=== PATIENT | female | born 1960 | race Caucasian/White ===

== ENCOUNTER 2018-03-04 02:46 | Inpatient (IN) | payer OTHER ==
[~2018-03-04] VITALS: Ht 165.1 cm; Wt 101.6 kg
[~2018-03-04 02:46] MED LIST: ALLER-TEC10 MG PO; ESCITALOPRAM OX10 MG PO; PANTOPRAZOLE SO40 M1 PO; VASOTEC10 MG PO
--- NOTE | 2018-03-04 08:03 | Admission Core Measures ---
Acute Coronary Syndrome (CM) ACS Core Measures Acute Coronary Syndrome Diagnosis No Congestive Heart Failure (NEW) CHF Core Measures Congestive Heart Failure Diagnosis No Cerebrovascular Accident CVA Core Measures CVA/TIA Diagnosis No Venous Thromboembolism VTE Core Maribeth (View Protocol) VTE Risk Factors Surgery No Mechanical VTE Prophylaxis d/t N/A MechProphylax Ordered No VTE Pharm Prophylaxis d/t NA PharmProphylax ordered Problem List As ranked by this Provider includes Assessment & Plan 1. Morbid obesity 2. Hypertension 3. Sleep apnea 4. GERD (gastroesophageal reflux disease) 5. S/P laparoscopic sleeve gastrectomy HOME MEDS Home Med List Cetirizine HCl (Aller-Shivani) 10 MG TABLET 1 TAB PO QPM ALLERGIES (Reported) Enalapril Maleate (Vasotec) 10 MG TABLET 1 TAB PO QPM BP (Reported) Escitalopram Oxalate 10 MG TABLET 1 TAB PO QPM DEPRESSION (Reported) Pantoprazole Sodium 40 MG TABLET.DR 1 TAB PO QPM REFLUX (Reported)
--- NOTE | 2018-03-04 08:04 | Surg Short-stay <48hrs Dis Sum ---
Visit Information Visit Dates Admission Date: 03/04/18 Discharge Date: 03/05/18 Surgical Short Stay DC Summary Admission Diagnosis: Morbid Obesity BMI 38, JAIDEN, HTN Final Diagnosis: RODRICK s/p Laparoscopic Sleeve Gastrectomy Procedure(s): Laparoscopic Sleeve Gastrectomy Summary/Significant Findings: Electively scheduled laparoscopic sleeve gastrectomy on 03/04/[address] Carr, for history of morbid obesity BMI 38, JAIDEN, HTN. Started on stage 1 bariatric diet post-operiately. Pain control transitioned from iv to oral medication as able. Discharged to home when tolerating bariatric diet and pain controlled. No indication for outpatient Lovenox management. Condition at Discharge: stable Discharge Disposition: home or self care Discharge instructions provided to patient/family: Yes Post discharge follow-up plan: one week follow up with Copies to: Reza SANTIAGO,Janice
--- NOTE | 2018-03-04 08:07 | Patient Discharge Instructions ---
Discharge Instructions General Discharge Information You were seen/treated for: morbid obesity, history of hypertension, sleep apnea You had these procedures: laparoscopic sleeve gastrectomy (03/04/18) Watch for these problems: fever>101.3, increased pain, redness/swelling/drainage, shortness of breath, chest pains, dizziness No bath, but you may shower: Yes Other wound care: ok to remove outer dressings. leave white steri strips in place. keep incisions clean & dry. Diet Continue normal diet: No Recommended Diet: Bariatric Additional DIET Information: weekly bariatric stage diet advancement as tolerated, as directed Activity Full Activity/No Limits: No Activity Self Limited: Yes Pounds, do NOT lift more than: 10 Other activity limits: no heavy lifting. no strenuous activity. Acute Coronary Syndrome Inclusion Criteria At DC or during hospital stay patient has or had the following: ACS DIAGNOSIS No Discharge Core Measures Meds if any: Prescribed or Continued at Discharge Meds if any: NOT Prescribed or Continued at Discharge Congestive Heart Failure Inclusion Criteria At DC or during hospital stay patient has or had the following: CHF DIAGNOSIS No Discharge Core Measures Meds if any: Prescribed or Continued at Discharge Meds if any: NOT Prescribed or Continued at Discharge Cerebrovascular accident Inclusion Criteria At DC or during hospital stay patient has or had the following: CVA/TIA Diagnosis No Discharge Core Measures Meds if any: Prescribed or Continued at Discharge Meds if any: NOT Prescribed or Continued at Discharge Venous thromboembolism Inclusion Criteria VTE Diagnosis No VTE Type NONE VTE Confirmed by (Test) NONE Discharge Core Measures - Per Current guidelines, there needs to be overlap - treatment for the first 5 days of Warfarin therapy. - If discharged on Warfarin prior to 5 days of - overlap therapy, the patient will need to be - assessed for post discharge needs including - *Post discharge parental anticoagulation - *Warfarin and/or parental anticoagulation education - *Follow up date to check INR post discharge At least 5 days overlap therapy as Inpatient No Meds if any: Prescribed or Continued at Discharge Note: Overlap Therapy is Warfarin and Anticoagulant Meds if any: NOT Prescribed or Continued at Discharge
[2018-03-04] MEDS ORDERED: TYLENOL WITH C1 EACH PO (08:08)
--- NOTE | 2018-03-04 11:20 | Operative Report ---
Operative/Inv Procedure Report Surgery Date: 03/04/18 Name of Procedure: Laparoscopic Sleeve Gastrectomy Pre-Operative Diagnosis: Morbid Obesity BMI 38, JAIDEN, HTN Post-Operative Diagnosis: Same Estimated Blood Loss: less than 50ml Surgeon/Clip Riveter: Perez Carr DO Anesthesia: general endotracheal tube IV Fluids: 1000 cc Drains: None Specimens: Stomach Complications: None Condition: Stable Operative Indication: This is a 57-year-old female who presented to the office for workup for bariatric surgery. After appropriate workup was completed I discussed with the patient the band, the sleeve, and the gastric bypass. The patient chose to undergo a sleeve gastrectomy. All risks including but not limited to bleeding, infection, leak, stricture, injury to surrounding bowel/esophagus/stomach/liver/ spleen, long-term reflux, DVT/PE, and mortality of 06/999 patients were discussed in detail. The patient understood everything and decided to proceed. Operative/Procedure Note Note: The patient was brought to the operating room and placed on the operating room table in supine position. Venodyne stockings were placed and adequate general endotracheal anesthesia was obtained. The patient was prepped and draped in standard surgical fashion. Began the procedure by making a 2 cm transverse incision supraumbilically and slightly to the left of the midline. Then using a 12 mm clear Visiport and a 10 mm 0 laparoscope, the abdominal cavity was accessed. Great care was taken to go through the anterior rectus sheath, the posterior rectus sheath, and through the peritoneum. Once we entered the peritoneum the abdominal cavity was insufflated to 15 mmHg. Upon initial examination no obvious gross pathology was seen. Accessory trocars were placed, 5 mm in the epigastrium for the Aldair liver retractor. The retractor was inserted and the liver was retracted anteriorly exposing the hiatus, no hiatal hernia was seen. 5 mm ports were placed in the right and left upper quadrant, a 5 mm left lateral port, and a 15 mm right lateral port. Began the procedure by mobilizing the greater curvature of the stomach approximately 7 cm from the pylorus. Once the retrogastric space was reached the whole greater curvature was mobilized maintaining hemostasis using Harmonic scalpel. Full hiatal dissection was performed, no hiatal hernia was seen. Posterior adhesions were taken down using Harmonic scalpel as well. Once the stomach was adequately mobilized a 38 Swazi bougie was inserted and placed along the lesser curvature of the stomach. Once the bougie was in the appropriate position we began creating our sleeve, two 60 mm black staple loads with seamguard followed by two 60 mm purple staple loads with seamguard and finished with a 45 mm purple load with seamguard as well. Great care was taken to leave ample room at the incisura angularis, to prevent any twisting or kinking of the sleeve, to stay lateral to the esophagogastric fat pad, and to do a full fundal excision. At the completion of the staple line the staple line was examined, it appeared intact and no obvious bleeding was noted. The bougie was removed, the sleeve was lying nicely without any twisting or kinking. The resected stomach was removed through the right lateral port site. The port and the left upper quadrant were irrigated until clear. All ports were removed under direct visualization no obvious bleeding was noted. The 15 mm port site fascia was closed using 0 Vicryl suture. The skin was closed using 4-0 Monocryl. Steri- Strips and dressings were placed. The patient was successfully extubated and transferred to the recovery room in stable condition. The patient tolerated the procedure well with no complications. Findings: No hiatal hernia, 38 Fr bougie CC: Reza SANTIAGO,Janice
--- NOTE | 2018-03-04 13:18 | PN- Bariatrics ---
Subjective Subjective: Patient reports heartburn, despite recieving 20 mg pepcid in pacu. She reports mild shoulder pain from CO2. She is tolerating water w/o nausea or vomiting. Denies voiding. Offers no other complaints. Objective Vital Signs and I&Os afebrile, VSS Physical Exam: Gen - resting comfortably in nad Cardiac - S1S2 noted Lungs - CTAB, no w/r/r Abd -soft, obese, dressing c/d/i, bs +, appropriately tender, no rebound or guarding noted Ext - no edema or calf pain, alps in place Current Medications: Current Medications Sig/Roney Start time Last Medication Dose Route Stop Time Status Admin Acetaminophen 1,000 MG Q6H 03/04 1330 UNVr N/A 1 UNIT IV 03/05 0744 Acetaminophen 0 .STK-MED ONE 03/04 0711 DC IV Acetaminophen/ 5 ML Q4-6 PRN PRN 03/05 1200 UNVr Codeine Phosphate PO Acetaminophen/ 10 ML Q4-6 PRN PRN 03/05 1200 UNVr Codeine Phosphate PO Cefazolin Sodium 2 GM IQ8 03/04 1800 UNir IV 03/05 0001 Cefazolin Sodium 2,000 MG ONCE 03/04 0000 DC IV 03/04 2359 Citric Acid/Sodium 30 ML ONCE ONE 03/04 1245 DC Citrate PO 03/04 1246 Dexamethasone 8 MG ONCE PRN 03/04 1330 UNVr IV PUSH Dextrose/Sodium 1,000 ML Q8H 03/04 1330 UNVr Chloride IV Escitalopram Oxalate 10 MG DAILY 03/04 0900 UNVr PO Famotidine 0 .STK-MED ONE 03/04 1157 DC IV Fentanyl Citrate 0 .STK-MED ONE 03/04 0711 DC .ROUTE Heparin Sodium 5,000 UNIT Q8 03/04 2200 UNVr (Porcine) SC Heparin Sodium 0 .STK-MED ONE 03/04 0925 DC (Porcine) .ROUTE Heparin Sodium 5,000 UNIT ONCE 03/04 0000 DC (Porcine) SC 03/04 2359 Hydromorphone HCl 0 .STK-MED ONE 03/04 1219 DC .ROUTE Hydromorphone HCl 0 .STK-MED ONE 03/04 1207 DC .ROUTE Ketorolac 30 MG Q6-PRN PRN 03/04 1330 UNVr Tromethamine IV Midazolam HCl 0 .STK-MED ONE 03/04 711 DC .ROUTE Ondansetron HCl 4 MG Q6P PRN 03/04 1330 UNVr IV Pantoprazole Sodium 40 MG DAILY 03/04 900 UNVr IV Simethicone 40 MG Q6P PRN 03/04 1330 UNVr PO Assessment/Plan Assessment/Plan 57 M s/p lap sleeve secondary to morbid obesity with heartburn Advance to stage 1 bariatric diet Keep NPO after midnight on IVF for possible UGI in am Postop abx - ancef x2 Analgesics/antiemetics prn DVT ppx - alps, hsq, no outpt lovenox indicated GI prophylaxis - give additional prilosec 20 mg once Resume home meds - hold enalapril Encourage IS, oob ambualtion Labs in am Core Measures Venous Thromboembolism VTE Risk Factors Surgery No Mechanical VTE Prophylaxis d/t N/A MechProphylax Ordered No VTE Pharm Prophylaxis d/t NA PharmProphylax ordered
[2018-03-04 13:22] VITALS: BP 140/90
[2018-03-04 17:29] VITALS: BP 124/66
[2018-03-04 22:39] VITALS: BP 123/66
[2018-03-05 06:59] VITALS: BP 116/59
--- NOTE | 2018-03-05 07:27 | PN- Bariatrics ---
See Addendum Subjective Subjective: Reports slight headache, improved after tylenol with codeine. Had some heartburn yesterday upon waking up in PACU, which has gradually improved overnight. No nausea. Tolerating stage 1 up until midnight. Ambulating without difficulty. No dizziness. No shortness of breath. No chest pains. Voiding without difficulty. Objective Vital Signs and I&Os Vital Signs Date Time Temp Pulse Resp B/P B/P Pulse O2 O2 Flow FiO2 Mean Ox Delivery Rate 03/05 0659 98.2 66 18 116/59 100 Room Air 03/05 0600 Room Air 03/04 2239 98.2 71 18 123/66 99 Room Air 03/04 2200 95 Room Air 03/04 2000 99 Room Air 03/04 1931 Room Air Room Air 03/04 1800 99 Room Air 03/04 1729 98.7 68 18 124/66 99 Room Air 03/04 1322 97 Room Air 03/04 1322 98.0 73 17 140/90 97 Room Air 03/04 1322 97 Room Air Intake & Output 03/05 0800 03/05 0000 03/04 1600 03/04 0800 03/04 0000 03/03 1600 Intake Total 1280 1420 220 Output Total 1800 1250 0 Balance -520 170 220 Intake, IV 1250 1150 100 Intake, Oral 30 270 120 Number 0 0 Bowel Movements Output, Urine 1800 1250 0 Patient 224 lb Weight Weight Bed scale Measurement Method Physical Exam: General - alert & oriented x 3. comfortable. no acute distress. Lungs - clear bilaterally. no w/r/r. Cardiac - s1s2. reg. Abdomen - soft. dressings c/d/i. no drains. Extremities - warm bilaterally. no c/c/e. calves soft and nontender b/l. athrombics active. Current Medications: Current Medications Sig/Roney Start time Last Medication Dose Route Stop Time Status Admin Acetaminophen 1,000 MG Q6H 03/04 1330 AC 03/05 N/A 1 UNIT IV 03/05 0744 0119 Acetaminophen/ 5 ML Q4-6 PRN PRN 03/05 1200 AC Codeine Phosphate PO Acetaminophen/ 10 ML Q4-6 PRN PRN 03/05 1200 AC 03/05 Codeine Phosphate PO 0444 Acetaminophen/ 0 .STK-MED ONE 03/05 0445 DC Codeine Phosphate PO Cefazolin Sodium 2 GM IQ8 03/04 1800 CAN IV 03/05 0001 Cefazolin Sodium 2 GM Q8H 03/04 1800 DC 03/05 N/A 1 UNIT IV 03/05 0229 0119 Cefazolin Sodium 2,000 MG ONCE 03/04 0000 DC IV 03/04 2359 Citric Acid/Sodium 30 ML ONCE ONE 03/04 1245 DC 03/04 Citrate PO 03/04 1246 1617 Dexamethasone 8 MG ONCE PRN 03/04 1330 AC IV PUSH Dextrose/Sodium 1,000 ML Q8H 03/04 1330 AC 03/05 Chloride IV 0340 Escitalopram Oxalate 10 MG DAILY 03/04 0900 AC PO Famotidine 0 .STK-MED ONE 03/04 1157 DC IV Heparin Sodium 5,000 UNIT Q8 03/04 2200 AC 03/05 (Porcine) SC 0446 Heparin Sodium 0 .STK-MED ONE 03/04 0925 DC (Porcine) .ROUTE Heparin Sodium 5,000 UNIT ONCE 03/04 0000 DC (Porcine) SC 03/04 2359 Hydromorphone HCl 0 .STK-MED ONE 03/04 1219 DC .ROUTE Hydromorphone HCl 0 .STK-MED ONE 03/04 1207 DC .ROUTE Influenza Virus 0 .STK-MED ONE 03/04 2128 DC Vaccine IM Influenza Virus 0.5 ML ONCE ONE 03/04 1445 DC 03/04 Vaccine IM 03/04 1446 2128 Ketorolac 30 MG Q6-PRN PRN 03/04 1330 AC 03/05 Tromethamine IV 03/09 1329 0340 Omeprazole 20 MG ONCE ONE 03/04 1345 DC 03/04 PO 03/04 1346 1358 Ondansetron HCl 4 MG Q6P PRN 03/04 1330 AC IV Pantoprazole Sodium 40 MG DAILY 03/04 0900 AC IV Simethicone 40 MG Q6P PRN 03/04 1330 AC PO Assessment/Plan Assessment/Plan This 57 year old female with hx morbid obesity (BMI 38), JAIDEN, and HTN, is POD#1 s/p laparoscopic sleeve gastrectomy tolerated stage 1 diet up until midnight. no nausea cancel upper gi study. restart stage 1 diet continue tylenol #3 for pain control continue protonix - gi ppx continue oob/ambulation continue hep sc - dvt ppx f/u labs d/w possible d/c home today if tolerating stage 1 diet Core Measures Venous Thromboembolism VTE Risk Factors Surgery No Mechanical VTE Prophylaxis d/t N/A MechProphylax Ordered No VTE Pharm Prophylaxis d/t NA PharmProphylax ordered
[2018-03-05] MEDS ORDERED: ACETAMINOP-CODEI5 ML PO (07:37)
[2018-03-05 08:31] LABS: ABSOLUTE BASOPHIL COUNT 0 /CUMM (0.0-0.2); ABSOLUTE EOSINOPHIL COUNT 0 /CUMM (0.0-0.7); ABSOLUTE GRANULOCYTE CT 7.3 /CUMM (1.4-6.5); ABSOLUTE LYMPH COUNT 1.9 /CUMM (1.2-3.4); ABSOLUTE MONOCYTE COUNT 0.8 /CUMM (0.10-0.60); BASOPHIL % 0.2 % (0.0-2.0); EOSINOPHIL % 0 % (0-5); GRANULOCYTE % 72.9 % (42.2-75.2); MEAN CORPUSCULAR HGB 31.6 PG (27.0-31.0); MEAN CORPUSCULAR HGB CONC 33.3 G/DL (33.0-37.0); MEAN CORPUSCULAR VOLUME 94.7 FL (81.0-99.0); MEAN PLATELET VOLUME 11.9 FL (7.4-10.4); PLATELET COUNT 211 /CUMM (130-400); RBC DISTRIBUTION WIDTH 13.9 % (11.5-14.5); RED BLOOD CELL CT 3.48 /CUMM (4.20-5.40)
== END 2018-03-05 14:08 | DRG 621 ==
LOC: SDA 02:46 → ENRESERV 11:53 → ENTRNSPT 13:06 → EDTRNSPTSTS 13:14 → EDTRNSPT 13:14 → 2NB 13:23 → CMPTRNSPT 13:26 → 2NB 03-05 14:08
PROVIDERS: Physician Assistant
PROC: 0DB64Z3 Excision of Stomach, Percutaneous Endoscopic Approach, Vertical (ICD-10-PCS; principal; 2018-03-04)
PROC: 3E0T3BZ Introduction of Anesthetic Agent into Peripheral Nerves and Plexi, Percutaneous Approach (ICD-10-PCS; principal; 2018-03-04)
DX: E66.01 Morbid (severe) obesity due to excess calories (principal); Z68.38 Body mass index [BMI] 38.0-38.9, adult; G47.33 Obstructive sleep apnea (adult) (pediatric); I10 Essential (primary) hypertension; K21.9 Gastro-esophageal reflux disease without esophagitis; Z88.5 Allergy status to narcotic agent; Z88.2 Allergy status to sulfonamides; Z90.49 Acquired absence of other specified parts of digestive tract; Z98.1 Arthrodesis status; Z90.710 Acquired absence of both cervix and uterus; Z98.2 Presence of cerebrospinal fluid drainage device
CPT/HCPCS: 2NBP; 36592; 82436; 93005; 93010; J0131; J0690; J1100; J1644; J1885; J2405; J3490; J7042; Q2036